=== PATIENT | female | born 1995 | race Caucasian/White ===

== ENCOUNTER 2019-03-05 19:36 | Emergency (ER) | payer SELFPAY ==
[~2019-03-05] VITALS: Ht 160 cm; Wt 72.8 kg
[~2019-03-05 19:36] MED LIST: ACET325T33 PO; IBUP-1542 PO; PREN-46 PO; TUCKS PR
[2019-03-05 19:39] VITALS: BP 115/56; PULSE 86; RESP 24; Ht 160 cm; Wt 72.8 kg
[2019-03-05] MEDS ORDERED: KETOROLAC 30 MG INJ IM STA (20:05)
[2019-03-05] MEDS ORDERED: ONDANSETRON (ODT) 4 MG TAB ODT STA (20:05)
[2019-03-05] MEDS ORDERED: ACET-141 PO (22:10)
[2019-03-05] MEDS ORDERED: IBUP-1542 PO (22:10)
--- NOTE | 2019-03-05 22:12 | ERD ---
ER Documentation Chief Complaint Chief Complaint Pt c/o lower abd pain HPI 24yo female presents for low abdominal pain x2 days. She states the pain is in the middle of the lower abdomen, rated 10/10, described as sharp and constant, without radiation. She denies vomiting, diarrhea, dysuria, vaginal bleeding. She denies fevers or chills. Denies chest pain or shortness of breath. No other modifying factors noted, no treatments tried at home. Patient has no significant past medical history. She also has never had surgery. She does admit to meth use 3 days ago, she smokes the meth. ROS All systems reviewed and are negative except as per history of present illness. Medications Home Meds Active Scripts Ibuprofen* (Motrin*) 600 Mg Tab, 600 MG PO Q6H PRN for PAIN AND OR ELEVATED TEMP, #30 TAB Prov:TARAS MASON DO 03/05/19 Acetaminophen* (Acetaminophen*) 500 MG Extra Strength Tablet, 500 MG PO Q4H PRN for PAIN AND OR ELEVATED TEMP, #30 TAB Prov:TARAS MASON DO 03/05/19 Witch Nahomy* (Tucks* Pads) 40 Pad Pad, 1 PAD [place] BEDSIDE MEDICATION PRN for HEMORRHOID/EPISIOTMY PAIN for 10 Days, #3 PAD 1 Refill Prov:TRAY SUTHERLAND MD 04/15/16 Ibuprofen* (Ibuprofen*) 600 Mg Tablet, 600 MG PO Q6 for 30 Days, #30 TAB 2 Refills Prov:TRAY SUTHERLAND MD 04/15/16 Acetaminophen* (Tylenol*) 325 Mg Tablet, 650 MG PO Q4H PRN for PAIN LEVEL 1-5 for 10 Days, #30 TAB 2 Refills Prov:TRAY SUTHERLAND MD 04/15/16 Reported Medications Vit #108/Iron/Fa ( ONE TABLET) 1 Each Tablet, 1 EACH PO DAILY 10/02/13 Allergies Allergies: Coded Allergies: No Known Allergy (Unverified , 10/02/13) PMhx/Soc Medical and Surgical Hx: pt denies Medical Hx, pt denies Surgical Hx Hx Alcohol Use: No Hx Substance Use: Yes (METH, MARIJUANA,DRUG ABUSE) Hx Tobacco Use: Yes Smoking Status: Current every day smoker FmHx Family History: No coronary disease Physical Exam Vitals Vital Signs Date Temp Pulse Resp B/P (MAP) Pulse Ox O2 O2 Flow FiO2 Time Delivery Rate 03/05/19 96.9 86 24 115/56 100 19:39 (75) Physical Exam Const: No acute distress Resp: Clear to auscultation bilaterally Cardio: Regular rate and rhythm, no murmurs Abd: Soft, non distended. Normal bowel sounds, mild tenderness palpation over the lower abdominal area, no McBurney's point tenderness, no Bryan sign, no rebound or guarding noted Skin: No petechiae or rashes Back: No midline or flank tenderness Ext: No cyanosis, or edema Neur: Awake and alert Psych: Normal Mood and Affect Result Diagram: 03/05/19201903/05/192019 Results 24 hrs Laboratory Tests Test 03/05/19 20:20 White Blood Count 15.4 10^3/ul Red Blood Count 4.03 10^6/ul Hemoglobin 12.0 g/dl Hematocrit 36.0 % Mean Corpuscular Volume 89.3 fl Mean Corpuscular Hemoglobin 29.8 pg Mean Corpuscular Hemoglobin Concent 33.3 g/dl Red Cell Distribution Width 13.0 % Platelet Count 500 10^3/UL Mean Platelet Volume 10.2 fl Immature Granulocytes % 0.400 % Neutrophils % 82.0 % Lymphocytes % 13.4 % Monocytes % 3.4 % Eosinophils % 0.3 % Basophils % 0.5 % Nucleated Red Blood Cells % 0.0 /100WBC Immature Granulocytes # 0.060 10^3/ul Neutrophils # 12.6 10^3/ul Lymphocytes # 2.1 10^3/ul Monocytes # 0.5 10^3/ul Eosinophils # 0.0 10^3/ul Basophils # 0.1 10^3/ul Nucleated Red Blood Cells # 0.0 10^3/ul Sodium Level 137 mmol/L Potassium Level 3.2 mmol/L Chloride Level 103 mmol/L Carbon Dioxide Level 25 mmol/L Anion Gap 9 Blood Urea Nitrogen 10 mg/dl Creatinine 0.49 mg/dl Est Glomerular Filtrat Rate mL/min > 60 mL/min Glucose Level 140 mg/dl Calcium Level 9.4 mg/dl Total Bilirubin 0.5 mg/dl Direct Bilirubin 0.00 mg/dl Indirect Bilirubin 0.5 mg/dl Aspartate Amino Transf (AST/SGOT) 17 IU/L Alanine Aminotransferase (ALT/SGPT) 24 IU/L Alkaline Phosphatase 79 IU/L Total Protein 7.8 g/dl Albumin 4.1 g/dl Globulin 3.70 g/dl Albumin/Globulin Ratio 1.10 Lipase 75 U/L Serum HCG, Qualitative NEGATIVE Current Medications Medications Dose Sig/Lisa Start Time Status Last (Trade) Ordered Route PRN Stop Time Admin Dose Reason Admin Ondansetron 4 mg ONCE STAT 03/05/19 DC 03/05/19 HCl (Zofran ODT 20:05 20:24 Odt) 03/05/19 20:06 Ketorolac 30 mg ONCE STAT 03/05/19 DC 03/05/19 Tromethamine IM 20:05 21:01 (Toradol) 03/05/19 20:06 Procedures/MDM Medical Decision Making: Differential diagnosis includes but not limited to acute gastritis, acute gastroenteritis, appendicitis, cholecystitis, pancreatitis, nephrolithiasis Patient appeared well on physical exam. Nontoxic appearing. ED course: Patient was given toradol. Symptoms improved with treatment. Labs: CBC showed no severe anemia, elevated WBC of 15 CMP showed potassium 3.2 otherwise other electrolytes normal, there was normal kidney and liver function Lipase was normal Serum HCG was negative Imaging: CT abdomen and pelvis without IV contrast showed linear metalic structured in the cecum, possibly foreign body ingestion. Appendix noted to be not visualized. Also noted opacities in the left upper lobe and right lower lobe, possible infection. Patient did not have respiratory symptoms, therefore low suspicion for lung infection. I discussed with the patient the CT abdomen and pelvic findings and she does not recall ingesting any foreign bodies. Patient states she has 10/10 abdominal pain however abdominal exam was benign, there was no rebound or guarding noted on exam. Given that patient appeared well and vital signs were normal, it was patient that patient could follow up as an outpatient. Advise to monitor stool for passage of foreign body and advised to follow up with PCP for possible referral to gastroenterology. Prescription(s): Patient given prescription for supportive medications . Patient advised to follow up with PCP in 1-2 days. Patient advised to return to ED for new or worsening symptoms. Patient stable on discharge from the ED. Disclaimer: Inadvertent spelling and grammatical errors are likely due to EHR/dictation software use and do not reflect on the overall quality of patient care. Also, please note that the electronic time recorded on this note does not necessarily reflect the actual time of the patient encounter. Departure Diagnosis: Primary Impression: Abdominal pain Abdominal location: lower abdomen, unspecified Qualified Codes: R10.30 - Lower abdominal pain, unspecified Condition: Fair Patient Instructions: Abdominal Pain Referrals: [facility] YOU HAVE RECEIVED A MEDICAL SCREENING EXAM AND THE RESULTS INDICATE THAT YOU DO NOT HAVE A CONDITION THAT REQUIRES URGENT TREATMENT IN THE EMERGENCY DEPARTMENT. FURTHER EVALUATION AND TREATMENT OF YOUR CONDITION CAN WAIT UNTIL YOU ARE SEEN IN YOUR DOCTORS OFFICE WITHIN THE NEXT 1-2 DAYS. IT IS YOUR RESPONSIBILITY TO MAKE AN APPOINTMENT FOR FOLOW-UP CARE. IF YOU HAVE A PRIMARY DOCTOR --you should call your primary doctor and schedule an appointment IF YOU DO NOT HAVE A PRIMARY DOCTOR YOU CAN CALL OUR PHYSICIAN REFERRAL HOTLINE AT IF YOU CAN NOT AFFORD TO SEE A PHYSICIAN YOU CAN CHOSE FROM THE FOLLOWING [facility] [address] [facility]. [facility] [address] [facility] [facility] [address] [facility]. [facility] [address] [facility]. [facility] [address] [facility]. [facility] [address] Additional Instructions: Call your primary care doctor TOMORROW for an appointment during the next 1-2 days.See the doctor sooner or return here if your condition worsens before your appointment time. Follow up with gastroenterology TARAS MASON DO March 05, 2019 22:11
== END 2019-03-05 22:36 | disposition home or self-care (01) ==
LOC: FTE 19:36
DX: R10.30 Lower abdominal pain, unspecified (principal); F17.210 Nicotine dependence, cigarettes, uncomplicated
CPT/HCPCS: 36415; 74176; 80053; 83690; 84703; 85025; 96372; 99285; J1885